=== PATIENT | male | born 1990 | race Caucasian/White ===

== ENCOUNTER 2018-03-05 16:47 | Emergency (ER) | payer OTHER ==
[~2018-03-05] VITALS: Ht 177.8 cm; Wt 93.0 kg
--- NOTE | 2018-03-05 17:09 | ED Integumentary General ---
General Chief Complaint: Skin/Wound Problems Stated Complaint: RASH FOREHEAD AND ARMS, TIGHTNESS IN THROAT Source: patient Exam Limitations: no limitations History of Present Illness Date Seen by Provider: Mar 05, 2018 Time Seen by Provider: 16:57 Initial Comments Patient presents to the ER by private conveyance with a chief complaint that this weekend he started noticing some very itchy little rash all over his hands , arms, neck, and part of his face. She been treating it with some hydrocortisone cream, Benadryl and Zantac. He felt it was not getting any better so he decided to come to the ER to be checked out. He is not having any wheezing, stridor or feeling of shortness of breath but he did feel that his throat was getting a little thicker or titer. He does not have a history of anaphylaxis. He has not had any new detergents or other contacts but he has been out waiting through the weeds he says. Allergies and Home Medications Patient Home Medication List Home Medication List Reviewed: Yes Constitutional: No chills, No diaphoresis EENTM: No ear discharge, No ear pain Respiratory: No cough, No short of breath, No stridor, No wheezing Cardiovascular: No chest pain, No Hx of Intervention, No palpitations Gastrointestinal: No abdominal pain, No constipation, No diarrhea Genitourinary: No discharge, No dysuria Musculoskeletal: No back pain, No joint pain Skin: pruritus, rash Psychiatric/Neurological: Denies Headache, Denies Numbness Past Ejlzxkp-Oqgjye-Qzwlgw Hx Patient Social History Alcohol Use: Denies Use Recreational Drug Use: No Smoking Status: Current Everyday Smoker Type Used: Cigarettes (1.0 ppd), Smokeless Tobacco Recent Foreign Travel: No Contact w/Someone Who Travel: No Physical Exam Vital Signs Capillary Refill : General Appearance: WD/WN, no apparent distress HEENT: PERRL/EOMI, normal ENT inspection, TMs normal, pharynx normal Neck: non-tender, full range of motion, supple, normal inspection Cardiovascular: normal peripheral pulses, regular rate, rhythm Respiratory: chest non-tender, lungs clear, normal breath sounds, no respiratory distress, no accessory muscle use Neurologic/Psychiatric: alert, normal mood/affect, oriented x 3 Skin: normal color, warm/dry Departure Impression Primary Impression: Contact dermatitis due to poison clay Disposition: 01 HOME, SELF-CARE Condition: Stable Departure-Patient Inst. Decision time for Depature: 17:10 Referrals: NO,LOCAL PHYSICIAN (PCP/Family) Primary Care Physician Patient Instructions: Contact Dermatitis (DC) Add. Discharge Instructions: You can apply a thin layer of hydrocortisone cream 2-3 times a day to your rash but only once a day for 2-3 days on your face. Take Zyrtec or Claritin one tablet daily until your itching is gone. If you have breakthrough itching you can use the Atarax 1-2 tablets every 6 hours as needed. It will cause some drowsiness. mark up designer the prednisone and take 2 tablets daily for the next 5 days. If your symptoms persist beyond that you can see a primary care doctor about extending your steroids. All discharge instructions reviewed with patient and/or family. Voiced understanding. Scripts Prednisone (Prednisone) 20 Mg Tab 40 MG PO DAILY for 5 Days, #10 TAB 0 Refills Prov: DEEPALI GARCIA 03/05/18 Hydroxyzine HCl (Hydroxyzine HCl) 25 Mg Tablet 25 MG PO Q6H PRN for ITCHING for 14 Days, #20 TAB 0 Refills Prov: DEEPALI GARCIA 03/05/18 DEEPALI GARCIA Mar 05, 2018 17:09
[2018-03-05] MEDS ORDERED: PRD20T PO (17:15)
[2018-03-05] MEDS ORDERED: HYDR-700 PO (17:15)
[2018-03-05 17:19] VITALS: BP 127/101
== END 2018-03-05 17:20 | disposition home or self-care (01) ==
LOC: EDUNIT# 16:47 → ER 16:50
DX: L23.7 Allergic contact dermatitis due to plants, except food (principal); F17.210 Nicotine dependence, cigarettes, uncomplicated; F17.290 Nicotine dependence, other tobacco product, uncomplicated
CPT/HCPCS: 99282

== ENCOUNTER 2022-02-27 15:52 | Emergency (ER) | payer OTHER ==
[~2022-02-27] VITALS: Ht 177 cm; Wt 96.0 kg
[~2022-02-27 15:52] MED LIST: HYDR-700 PO; PRD20T PO
[2022-02-27 15:56] VITALS: BP 108/78
--- NOTE | 2022-02-27 16:12 | ED Integumentary General ---
General Chief Complaint: Skin/Wound Problems Stated Complaint: GENITAL CYST/POISON GERALDINE Source: patient Exam Limitations: no limitations History of Present Illness Date Seen by Provider: Feb 27, 2022 Time Seen by Provider: 16:10 Initial Comments This is a healthy 31 year old male that presents for a cyst on his perineum that has been present for over 1 year that he would like removed. He also states he has poison geraldine on his trunk and face that he would like steroids for. [facility] but has been unable to get follow up so far. He denies redness, drainage, fever, vomiting. Allergies and Home Medications Allergies Coded Allergies: No Known Drug Allergies (Unverified , 02/27/22) Patient Home Medication List Home Medication List Reviewed: Yes Hydroxyzine HCl (Hydroxyzine HCl) 25 Mg Tablet, 25 MG PO Q6H PRN for ITCHING Prescribed by: DEEPALI GARCIA on 03/05/181714 Prednisone (Prednisone) 20 Mg Tab, 40 MG PO DAILY Prescribed by: DEEPALI GARCIA on 03/05/181714 Review of Systems Review of Systems Constitutional: no symptoms reported EENTM: no symptoms reported Respiratory: no symptoms reported Cardiovascular: no symptoms reported Gastrointestinal: no symptoms reported Genitourinary: other (cyst on perineum) Musculoskeletal: no symptoms reported Skin: rash (poison geraldine dermatitis ) Psychiatric/Neurological: No Symptoms Reported Endocrine: No Symptoms Reported Past Vwjjpwv-Umekyx-Hrlupq Hx Patient Social History Tobacco Use?: No Seasonal Allergies Seasonal Allergies: No Past Medical History Surgeries: Yes Eye Surgery, Tonsillectomy Respiratory: No Cardiac: No Neurological: No Genitourinary: No Gastrointestinal: No Musculoskeletal: No Endocrine: No HEENT: No Cancer: No Psychosocial: No Integumentary: No Blood Disorders: No Physical Exam Vital Signs Capillary Refill : General Appearance: WD/WN, no apparent distress HEENT: PERRL/EOMI, TMs normal Neck: non-tender, supple Cardiovascular: regular rate, rhythm, no edema Respiratory: chest non-tender, lungs clear Gastrointestinal: normal bowel sounds, non tender, other (Small fluid-filled cyst on the cranium without overlying erythema or induration) Extremities: normal range of motion 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 I recommended that he follow-up with [facility]. I did treat his poison geraldine with nini ds for symptomatic relief given the widespread nature of the ailment. We discussed detailed home care and return precautions and the patient is in agreement to the care plan. Impression Primary Impression: Rash and nonspecific skin eruption Additional Impression: Contact dermatitis due to poison geraldine Disposition: HOME, SELF-CARE Condition: Stable Departure-Patient Inst. Decision time for Depature: 16:15 [address]errals: [facility],LOCAL PHYSICIAN (PCP) Primary Care Physician Patient Instructions: Poison Geraldine, Poison [place], Poison [place] (DC) Add. Discharge Instructions: Please [facility] with the [facility] as [facility]. All discharge instructions reviewed with patient and/or family. Voiced understanding. Scripts Prednisone (Prednisone) 20 Mg Tab 20 MG PO BID for 5 Days, #10 TAB Take 3 tabs(60mg)daily, decrease by 1/2 tab(10mg)daily. Prov: ARTEM CHANG 02/27/22 ARTEM CHANG Feb 27, 2022 16:12
[2022-02-27] MEDS ORDERED: methylPREDNISolone 40 MG/ML (Solu-MEDROL) VIAL IM ONE (16:15)
[2022-02-27] MEDS ORDERED: PRD20T PO (16:17)
== END 2022-02-27 16:27 | disposition home or self-care (01) ==
LOC: EDUNIT# 15:52 → ER 15:54
DX: L25.5 Unspecified contact dermatitis due to plants, except food (principal)
CPT/HCPCS: 99284

== ENCOUNTER 2022-07-09 14:18 | Emergency (ER) | payer OTHER ==
[~2022-07-09] VITALS: Ht 177.8 cm; Wt 91.6 kg
[2022-07-09] MEDS ORDERED: TETANUS & DIPHTHERIA TOX,ADULT 0.5 ML (TENIVAC) IM ONE (15:00)
[2022-07-09] MEDS ORDERED: fentaNYL INJ 100 MCG/2 ML AMP IVP ONE ×2 (15:00→15:45)
--- NOTE | 2022-07-09 15:09 | ED Lower Extremity ---
General Chief Complaint: Foreign Body Stated Complaint: SCREW IN FOOT Nursing Triage Note: PT AMBULATE TO ROOM 07 WITH C/O SCREW IN BOTTOM OF LEFT FOOT. PT STATES HE WAS WORKING AND STEPPED ON A SCREW. SCREW HEAD NOTED TO BOTTOM OF LEFT SHOE. Source: patient Exam Limitations: no limitations History of Present Illness Date Seen by Provider: Jul 09, 2022 Time Seen by Provider: 15:09 Initial Comments To ER with reports of a screw in the plantar surface of the left foot over the heel this occurred just prior to arrival. Onset: just prior to arrival Severity: moderate Pain/Injury Location: left foot Method of Injury: unknown Modifying Factors: Worse With Movement Allergies and Home Medications Allergies Coded Allergies: No Known Drug Allergies (Unverified , 02/27/22) Patient Home Medication List Home Medication List Reviewed: Yes Cephalexin (Cephalexin) 500 Mg Tablet, 500 MG PO TID Prescribed by: JAIME JENNINGS on 07/09/22 155 Ciprofloxacin HCl (Ciprofloxacin HCl) 500 Mg Tablet, 500 MG PO BID Prescribed by: JAIME JENNINGS on 07/09/22 155 Hydrocodone/Acetaminophen (Hydrocodone-Acetamin 5-325 mg) 5 Mg-325 Mg Tablet, 1 TAB PO Q4H PRN for PAIN-MODERATE (5-7) Prescribed by: JAIME JENNINGS on 07/09/22 155 Prednisone (Prednisone) 20 Mg Tab, 20 MG PO BID Prescribed by: Rk Silverman on 02/27/22 1617 Review of Systems Constitutional: see HPI EENTM: see HPI Respiratory: no symptoms reported Cardiovascular: no symptoms reported Genitourinary: no symptoms reported Musculoskeletal: no symptoms reported Skin: see HPI Psychiatric/Neurological: No Symptoms Reported Past Zfhlqqw-Nbesek-Qqvrqt Hx Patient Social History Tobacco Use?: Yes Tobacco type used: Cigarettes Smoking Status: Heavy Tobacco Smoker Use of E-Cig and/or Vaping dev: No Use of E-Cig and/or Vaping Jonas: Never a User Substance use?: No Alcohol Use?: Yes Alcohol type: Wine Alcohol Frequency: Rarely Pt feels they are or have been: No Seasonal Allergies Seasonal Allergies: No Past Medical History Surgeries: Yes Eye Surgery, Tonsillectomy Respiratory: No Cardiac: No Neurological: No Genitourinary: No Gastrointestinal: No Musculoskeletal: No Endocrine: No HEENT: No Cancer: No Psychosocial: No Integumentary: No Blood Disorders: No Physical Exam Vital Signs Vital Signs - First Documented 07/09/22 14:35 Temp 36.6 Pulse 102 Resp 19 B/P (MAP) 146/102 (117) O2 Delivery Room Air Capillary Refill : Less Than 3 Seconds Height, Weight, BMI Height: 5'10.00" Weight: 205lbs. oz. 92.873396pr; 28.00 BMI Method:Stated General Appearance: WD/WN, no apparent distress HEENT: PERRL/EOMI, normal ENT inspection Respiratory: no respiratory distress, no accessory muscle use Hips: bilateral hip non-tender, bilateral hip normal inspection, bilateral hip normal range of motion Legs: bilateral leg non-tender, bilateral leg normal inspection, bilateral leg normal range of motion Knees: bilateral knee non-tender, bilateral knee normal inspection, bilateral knee normal range of motion Ankles: bilateral ankle non-tender, bilateral ankle normal inspection, bilateral ankle normal range of motion Feet: bilateral foot non-tender, bilateral foot normal inspection, bilateral foot normal range of motion Neurologic/Psychiatric: alert, normal mood/affect, oriented x 3 Skin: normal color, warm/dry There is in fact a screw through the plantar surface of his foot through the shoe and into the heel of his foot Progress/Results/Core Measures Results/Orders My Orders Orders - JAIME JENNINGS APRN Foot, Left, 3 Views (07/09/22 14:49) Ed Iv/Invasive Line Start (07/09/22 14:49) Fentanyl Inj (Sublimaze Injection) (07/09/22 15:00) Tetanus/Diphtheria Inj (Adult) (Tenivac (07/09/22 15:00) Cefazolin Injection (Ancef Injection) (07/09/22 15:45) Ciprofloxacin Tablet (Cipro Tablet) (07/09/22 15:45) Fentanyl Inj (Sublimaze Injection) (07/09/22 15:45) Medications Given in ED Current Medications Medications Dose Ordered Sig/Grady Route Start Time Stop Time Status Last Admin Dose Admin Cefazolin Sodium 1,000 mg ONCE ONCE IV 07/09/22 15:45 07/09/22 15:46 DC 07/09/22 15:51 1,000 MG Fentanyl Citrate 50 mcg ONCE ONCE IVP 07/09/22 15:00 07/09/22 15:01 DC 07/09/22 15:51 50 MCG Tetanus/ Diphtheria Toxoids 0.5 ml ONCE ONCE IM 07/09/22 15:00 07/09/22 15:01 DC 07/09/22 15:51 0.5 ML Vital Signs/I&O 07/09/22 14:35 Temp 36.6 Pulse 102 Resp 19 B/P (MAP) 146/102 (117) O2 Delivery Room Air Blood Pressure Mean: 117 Departure Communication (Admissions) 4845-did a posterior tibial nerve block on the left using ultrasound using 5 mL of 1% lidocaine without epinephrine. After that achieved regional anesthesia in about 10 minutes we were able to easily remove the screw. Impression Primary Impression: Foreign body in skin Disposition: HOME, SELF-CARE Condition: Stable Departure-Patient Inst. Decision time for Depature: 15:53 Referrals: NO,LOCAL PHYSICIAN (PCP/Family) Primary Care Physician Patient Instructions: Foreign Body in Skin (DC) Add. Discharge Instructions: 1. Use the crutches as needed. When you are able to bear weight on the foot you are allowed to do so and stop using the crutches. Return to ER for any sign of infection such as redness puslike drainage or swelling. Take the antibiotics as directed as well as the pain medication. All discharge instructions reviewed with patient and/or family. Voiced understanding. Scripts Hydrocodone/Acetaminophen (Hydrocodone-Acetamin 5-325 mg) 5 Mg-325 Mg Tablet 1 TAB PO Q4H PRN for PAIN-MODERATE (5-7), #10 TAB Prov: JAIME JENNINGS APRN 07/09/22 Ciprofloxacin HCl (Ciprofloxacin HCl) 500 Mg Tablet 500 MG PO BID, #10 TAB Prov: JAIME JENNINGS APRN 07/09/22 Cephalexin (Cephalexin) 500 Mg Tablet 500 MG PO TID, #15 TAB Prov: JAIME JENNINGS APRN 07/09/22 Work/School Note: Work Release Form Date Seen in the Emergency Department: Jul 09, 2022 Return to Work: Jul 12, 2022 JAIME JENNINGS APRN Jul 09, 2022 15:09
--- NOTE | 2022-07-09 15:13 | Diagnostic Imaging Report ---
INDICATION: Stepped on a screw to the bottom of the foot. Pain. EXAMINATION: Left foot 07/09/2022. FINDINGS: 3 views of the foot demonstrate an overlying shoe somewhat obscuring fine bony detail. A threaded screw is seen through the plantar surface of the hindfoot overlying the posterior aspect of the calcaneus with the tip approximately 1 to 2 mm proximal to the inferior border of the calcaneus. No underlying fractures or dislocations appreciated. Multiple hyperdensities about the foot likely overlying the patient. This does limit evaluation for other radiopaque foreign bodies. IMPRESSION: 1. Screw within the subcutaneous tiny soft tissues of the plantar surface of the posterior calcaneal region without underlying fracture. Dictated by: Dictated on workstation # [id number]
[2022-07-09] MEDS ORDERED: CIPROFLOXACIN 500 MG (CIPRO) TABLET PO SCH (15:45)
[2022-07-09] MEDS ORDERED: ceFAZolin INJECTION 1,000 MG VIAL IV ONE (15:45)
[2022-07-09] MEDS ORDERED: ACHD5005 PO (15:54)
[2022-07-09] MEDS ORDERED: CEPH500T PO (15:54)
[2022-07-09] MEDS ORDERED: CIPR500T5 PO (15:54)
[2022-07-09 16:15] VITALS: BP 134/72
== END 2022-07-09 16:15 | disposition home or self-care (01) ==
LOC: EDUNIT# 14:18 → ER 14:21
DX: S90.852A Superficial foreign body, left foot, initial encounter (principal); F17.210 Nicotine dependence, cigarettes, uncomplicated; Z23 Encounter for immunization; Z28.310 Unvaccinated for COVID-19; W45.8XXA Other foreign body or object entering through skin, initial encounter
CPT/HCPCS: 73630; 90714

== ENCOUNTER 2023-01-26 17:05 | Emergency (ER) | payer OTHER ==
[~2023-01-26] VITALS: Ht 177 cm; Wt 76.0 kg
[~2023-01-26 17:05] MED LIST changes: +ACHD5005 PO; +CEPH500T PO; +CIPR500T5 PO
[2023-01-26 17:10] VITALS: BP 136/99
--- NOTE | 2023-01-26 17:17 | ED Integumentary General ---
General Chief Complaint: Skin/Wound Problems Stated Complaint: L FOOT SWELLING Source: patient Exam Limitations: no limitations History of Present Illness Date Seen by Provider: January 26, 2023 Time Seen by Provider: 17:12 Initial Comments Patient is a 32-year-old male who presents to ED for left foot pain and swelling. States 2 days ago stepped on a nail while wearing his slippers. States the nail was in a board at the time. Had to pull the nail out. States it feels like it was superficial. Up-to-date on his tetanus. Patient states he has increased pain, swelling and redness. Patient denies fever, chills, nausea, vomiting, diarrhea. Patient states he did remove the nail. Possible foreign object still in his left foot. Allergies and Home Medications Allergies Coded Allergies: No Known Drug Allergies (Unverified , 02/27/22) Patient Home Medication List Home Medication List Reviewed: Yes Cephalexin (Cephalexin) 500 Mg Tablet, 500 MG PO TID Prescribed by: JAIME JENNINGS on 07/09/22 155 Cephalexin (Cephalexin) 500 Mg Tablet, 500 MG PO TID Prescribed by: ABBY SHINE on 01/26/23 1726 Ciprofloxacin HCl (Ciprofloxacin HCl) 500 Mg Tablet, 500 MG PO BID Prescribed by: JAIME JENNINGS on 07/09/22 155 Ciprofloxacin HCl (Ciprofloxacin HCl) 500 Mg Tablet, 500 MG PO BID Prescribed by: ABBY SHINE on 01/26/23 1726 Hydrocodone/Acetaminophen (Hydrocodone-Acetamin 5-325 mg) 5 Mg-325 Mg Tablet, 1 TAB PO Q4H PRN for PAIN-MODERATE (5-7) Prescribed by: JAIME JENNINGS on 07/09/22 155 Prednisone (Prednisone) 20 Mg Tab, 20 MG PO BID Prescribed by: Rk Silverman on 02/27/22 1617 Review of Systems Review of Systems Constitutional: No chills, No diaphoresis, No malaise, No weakness EENTM: No ear pain, No blurred vision, No double vision, No dental problems, No hoarseness, No mouth pain, No mouth swelling Respiratory: No cough, No dyspnea on exertion Cardiovascular: No chest pain Gastrointestinal: No abdominal pain, No diarrhea, No nausea, No vomiting Genitourinary: No decreased output Musculoskeletal: No back pain, No joint pain; joint swelling Skin: change in color, other (Foot swelling and redness) All Other Systems Reviewed Negative Unless Noted: Yes Past Inakbcb-Zqxgcm-Phrjia Hx Seasonal Allergies Seasonal Allergies: No Past Medical History Surgeries: Yes Eye Surgery, Tonsillectomy Respiratory: No Cardiac: No Neurological: No Genitourinary: No Gastrointestinal: No Musculoskeletal: No Endocrine: No HEENT: No Cancer: No Psychosocial: No Integumentary: No Blood Disorders: No Physical Exam Vital Signs Vital Signs - First Documented 01/26/23 17:10 Temp 35.5 Pulse 71 Resp 18 B/P (MAP) 136/99 (111) Pulse Ox 98 Capillary Refill : General Appearance: WD/WN, no apparent distress HEENT: PERRL/EOMI, normal ENT inspection, TMs normal, pharynx normal Neck: non-tender, full range of motion, supple, normal inspection Cardiovascular: regular rate, rhythm, no edema, no gallop, no JVD Respiratory: chest non-tender, lungs clear, normal breath sounds, no respiratory distress Gastrointestinal: normal bowel sounds, non tender, soft, no organomegaly Back: normal inspection, no CVA tenderness Extremities: swelling (Left plantar foot. 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 Potential foreign body noted in the skin of the left plantar foot underlying the first metatarpal, MTP) Skin Problem Character: other (Erythema warmth noted to left medial foot) Procedures/Interventions I&D : Blade Size: 11 I & D Procedure: betadine prep Progress 1 percent lidocaine 1 mL was used anesthetize the left plantar foot. 11 inch blade removed small metal fragments to left plantar foot. Patient tolerated procedure well Progress/Results/Core Measures Results/Orders My Orders Orders - SADI VALDEZ Cephalexin Capsule (Keflex Capsule) (01/26/23 17:39) Vital Signs/I&O 01/26/23 17:10 Temp 35.5 Pulse 71 Resp 18 B/P (MAP) 136/99 (111) Pulse Ox 98 Departure Communication (PCP) Localized erythema and swelling to left plantar foot underlying the first metatarsal, MTP joint. Made a small incision with 11 inch blade removed some metal fragments. Last tetanus shot was last year. Surrounding redness and swelling concerning for cellulitis. Will discharge Cipro Keflex cover Pseudomonas, staph and strep. Discussed wound care. Procedure document note. Return back to ED if increased pain, swelling or redness. Do not believe nail went into the bone. States it was fairly superficial and was able to pull out at home. The nail was in a board at the time when he pulled out. It was outside in the rain Impression Primary Impression: Puncture wound Disposition: HOME, SELF-CARE Condition: Stable Departure-Patient Inst. Decision time for Depature: 17:22 Referrals: NO,LOCAL PHYSICIAN (PCP/Family) Primary Care Physician Patient Instructions: Cellulitis (Skin Infection), Adult ED Add. Discharge Instructions: If increased redness, swelling or pain to return back to ED. All discharge instructions reviewed with patient and/or family. Voiced understanding. Scripts Cephalexin (Cephalexin) 500 Mg Tablet 500 MG PO TID for 7 Days, #21 TAB Prov: SADI VALDEZ 01/26/23 Ciprofloxacin HCl (Ciprofloxacin HCl) 500 Mg Tablet 500 MG PO BID for 7 Days, #14 TAB Prov: SADI VALDEZ 01/26/23 SADI VALDEZ January 26, 2023 17:17
[2023-01-26] MEDS ORDERED: CEPH500T PO (17:26)
[2023-01-26] MEDS ORDERED: CIPR500T5 PO (17:26)
[2023-01-26] MEDS ORDERED: CEPHALEXIN 250 MG (KEFLEX) CAP PO STA (17:39)
== END 2023-01-26 17:49 | disposition home or self-care (01) ==
LOC: EDUNIT# 17:05 → ER 17:06
DX: S91.342A Puncture wound with foreign body, left foot, initial encounter (principal); W45.0XXA Nail entering through skin, initial encounter
CPT/HCPCS: 99283